=== PATIENT | male | born 1990 | race Caucasian/White ===

== ENCOUNTER 2017-10-22 21:30 | Emergency (ER) | payer MEDICAID ==
[2017-10-23 02:41] LABS: ABS Basophils 0.1 10^3/ul (0-0.2); ABS Eosinophils 0.1 10^3/ul (0-0.6); ABS Lymphocytes 3.5 10^3/ul (1.0-4.8); ABS Monocytes 0.8 10^3/ul (0-0.8); ABS Neutrophils 5.3 10^3/ul (1.5-7.7); ABS Nucleated RBC 0 10^3/ul; Hematocrit 48 % (42-52); Hemoglobin 16.1 g/dl (14.0-18.0); Lymphocyte % 35.7 % (25-47); Mean Corpuscular HGB Conc 34 g/dl (31-36); Mean Corpuscular Hemoglobin 30 pg (27-31); Mean Corpuscular Volume 87 fL (80-94); Mean Platelet Volume 7.5 um3 (7.4-10.4); Nucleated Red Blood Cells % 0.2; Platelet Count 313 10^3/ul (150-450); Red Blood Count 5.45 10^6/ul (4.00-5.40); Red Cell Distribution Width 13 % (10.5-15); White Blood Count 9.8 10^3/ul (3.5-10.8)
[2017-10-23 02:55] LABS: EGFR Non-African American 79.1 (>60)
--- NOTE | 2017-10-23 03:40 | ED ---
HPI Chest Pain - HPI Summary HPI Summary: Complains of left lower rib pain, left shoulder blade pain x several weeks. Pain is intermittent, with random onset and resolution. Denies active left side rib pain here in the ED. Also complains of cough 2 weeks. Eyes trauma, fever, sore throat, SOB, N/V/D, abdominal pain, change in urinary BM. No history of CP or SOB with exertion. Medical history is untreated hypertension years, anxiety, panic attacks.. Former smoker, quit 2 years ago. Denies illegal drug use. Occasional EtOH. Denies family cardiac history, recent trauma or surgery, unilateral leg pain, hemoptysis. - History of Current Complaint Chief Complaint: EDChestWallPain Time Seen by Provider: 10/23/17 01:39 Hx Obtained From: Patient Onset/Duration: Started Weeks Ago Timing: Intermittent, Lasting Minutes Initial Severity: Mild Pain Intensity: 0 Pain Scale Used: 0-10 Numeric Chest Pain Location: Discrete at:, Left Lateral Chest Pain Radiates To:: Shoulder Aggravating Factor(s): Nothing Alleviating Factor(s): Nothing Associated Signs and Symptoms: Positive: Chest Pain, Anxiety, Palpitations - Risk Factors Pulmonary Embolism Risk Factors: Negative - Allergy/Home Medications Allergies/Adverse Reactions: Allergies Allergy/AdvReac Type Severity Reaction Status Date / Time No Known Allergies Allergy Verified 08/21/13 19:33 PMH/Surg Hx/FS Hx/Imm Hx Endocrine/Hematology History: Denies: Hx Anticoagulant Therapy Cardiovascular History: Denies: Hx Cardiac Arrest Respiratory History: Denies: Hx Lung Cancer History: Denies: Hx Dialysis Opthamlomology History: Denies: Hx Cataracts EENT History: Denies: Hx Deafness Neurological History: Denies: Hx CVA Psychiatric History: Reports: Hx Panic Disorder Infectious Disease History: No Infectious Disease History: Denies: Traveled Outside the [place] in Last 30 Days - Social History Alcohol Use: Occasionally Alcohol Amount: patient report hx of heavy use Substance Use Type: Reports: None Smoking Status (MU): Former Smoker Type: Cigarettes Amount Used/How Often: 1/4 PPD Review of Systems Constitutional: Negative Eyes: Negative ENT: Negative Positive: Palpitations, Chest Pain Respiratory: Negative Gastrointestinal: Negative Genitourinary: Negative Positive: Other Skin: Negative Neurological: Negative Psychological: Normal All Other Systems Reviewed And Are Negative: Yes Physical Exam - Summary Physical Exam Summary: Patient tender to palpation in the left paraspinal muscles along T-spine. Tenderness to palpation of left lower lateral rib wall. No left lateral chest wall pain pain with deep inhalation, movement of left arm. No ecchymosis, deformity, swelling, erythema noted to left chest wall. Triage Information Reviewed: Yes Vital Signs On Initial Exam: Initial Vitals Temp Pulse Resp BP Pulse Ox 98.8 F 90 16 163/101 100 10/22/17 21:47 10/22/17 21:47 10/22/17 21:47 10/22/17 21:47 10/22/17 21:47 Vital Signs Reviewed: Yes Appearance: Positive: Well-Appearing Skin: Positive: Warm Head/Face: Positive: Normal Head/Face Inspection Eyes: Positive: Normal Neck: Positive: Supple Respiratory/Lung Sounds: Positive: Clear to Auscultation Cardiovascular: Positive: Normal Abdomen Description: Positive: Nontender Musculoskeletal: Positive: Normal Neurological: Positive: Normal Psychiatric: Positive: Normal AVPU Assessment: Alert - Jean Marie Coma Scale Best Eye Response: 4 - Spontaneous Best Motor Response: 6 - Obeys Commands Best Verbal Response: 5 - Oriented Coma Scale Total: 15 Diagnostics - Vital Signs Vital Signs Temp Pulse Resp BP Pulse Ox 10/22/17 23:41 98.5 F 66 14 153/79 100 10/22/17 21:47 98.8 F 90 16 163/101 100 - Laboratory Lab Results: Lab Results 10/23/17 10/23/17 10/23/17 Range/Units 02:15 02:15 02:15 WBC 9.8 (3.5-10.8) 10^3/ul RBC 5.45 H (4.00-5.40) 10^6/ul Hgb 16.1 (14.0-18.0) g/dl Hct 48 (42-52) % MCV 87 (80-94) fL MCH 30 (27-31) pg MCHC 34 (31-36) g/dl RDW 13 (10.5-15) % Plt Count 313 (150-450) 10^3/ul MPV 7.5 (7.4-10.4) um3 Neut % (Auto) 54.0 (38-83) % Lymph % (Auto) 35.7 (25-47) % [place] % (Auto) 8.5 H (0-7) % Eos % (Auto) 1.0 (0-6) % Baso % (Auto) 0.8 (0-2) % Absolute Neuts (auto) 5.3 (1.5-7.7) 10^3/ul Absolute Lymphs (auto) 3.5 (1.0-4.8) 10^3/ul Absolute Monos (auto) 0.8 (0-0.8) 10^3/ul Absolute Eos (auto) 0.1 (0-0.6) 10^3/ul Absolute Basos (auto) 0.1 (0-0.2) 10^3/ul Absolute Nucleated RBC 0 10^3/ul Nucleated RBC % 0.2 D-Dimer, Quantitative < 200 (Less Than 230) ng/mL Sodium 139 (135-145) mmol/L Potassium 3.5 (3.5-5.0) mmol/L Chloride 100 L (101-111) mmol/L Carbon Dioxide 26 (22-32) mmol/L Anion Gap 13 H (2-11) mmol/L BUN 14 (6-24) mg/dL Creatinine 1.13 (0.67-1.17) mg/dL Est GFR ( Amer) 95.7 (>60) Est GFR (Non-Af Amer) 79.1 (>60) BUN/Creatinine Ratio 12.4 (8-20) Glucose 92 (70-100) mg/dL Calcium 10.3 (8.6-10.3) mg/dL Total Bilirubin 0.90 (0.2-1.0) mg/dL AST 24 (13-39) U/L ALT 32 (7-52) U/L Alkaline Phosphatase 77 (34-104) U/L Troponin I 0.01 (<0.04) ng/mL C-Reactive Protein 2.16 (<8.01) mg/L Total Protein 8.1 (6.4-8.9) g/dL Albumin 5.2 (3.2-5.2) g/dL Globulin 2.9 (2-4) g/dL Albumin/Globulin Ratio 1.8 (1-3) Lipase < 10 L (11.0-82.0) U/L Result Diagrams: 10/23/17 02:15 10/23/17 02:15 Lab Statement: Any lab studies that have been ordered have been reviewed, and results considered in the medical decision making process. - Radiology cxr Xray Interpretation: No Acute Changes Radiology Interpretation Completed By: ED Physician - EKG 1 Cardiac Rate: NL EKG Rhythm: Sinus Rhythm ST Segment: Normal Ectopy: None Chest Pain Course/Dx - Course Course Of Treatment: Complains of left lower rib pain, left shoulder blade pain x several weeks. Pain is intermittent, with random onset and resolution. Denies active left side rib pain here in the ED. Also complains of cough 2 weeks. Eyes trauma, fever, sore throat, SOB, N/V/D, abdominal pain, change in urinary BM. No history of CP or SOB with exertion. Medical history is untreated hypertension years, anxiety, panic attacks.. Former smoker, quit 2 years ago. Denies illegal drug use. Occasional EtOH. Denies family cardiac history, recent trauma or surgery, unilateral leg pain, hemoptysis. Patient tender to palpation in the left paraspinal muscles along T-spine. Tenderness to palpation of left lower lateral rib wall. No left lateral chest wall pain pain with deep inhalation, movement of left arm. No ecchymosis, deformity, swelling, erythema noted to left chest wall. EKG, chest x-ray negative. Labs negative. Follow-up with primary care. - Diagnoses Provider Diagnoses: Rib pain, Shoulder pain, Muscle spasm Discharge - Sign-Out/Discharge Documenting (check all that apply): Discharge/Admit/Transfer - Discharge Plan Condition: Stable Disposition: HOME Prescriptions: Cyclobenzaprine TAB* [Flexeril 10 MG TAB*] 10 mg PO TID PRN 3 Days #10 tab PRN Reason: Pain Referrals: No Primary Care Phys,NOPCP [Primary Care Provider] - - Billing Disposition and Condition Condition: STABLE Disposition: Home
[2017-10-23 04:01] VITALS: BP 155/87
--- NOTE | 2017-10-23 08:42 | RAD ---
INDICATION: Chest pain COMPARISON: None TECHNIQUE: PA and lateral dual-energy views were obtained. FINDINGS: Bones/Soft Tissues: There are no acute bony findings. Cardiomediastinal: The cardiomediastinal silhouette is normal. Lungs: There are no infiltrates. Pleura: There are no pleural effusions. Other: None IMPRESSION: NO ACTIVE DISEASE.
== END 2017-10-23 04:07 | disposition home or self-care (01) ==
LOC: ED 21:30
DX: R07.81 Pleurodynia (principal); M25.512 Pain in left shoulder; R25.2 Cramp and spasm; R07.9 Chest pain, unspecified; R00.2 Palpitations; Z87.891 Personal history of nicotine dependence
CPT/HCPCS: 36415; 71046; 80053; 83690; 84484; 85025; 85379; 86140; 93005; 99283

== ENCOUNTER 2022-03-04 13:34 | Observation (INO) ==
[2022-03-04] MEDS ORDERED: Morphine 4 MG/ML VIAL (1 ml) IV ONE (13:39)
[2022-03-04] MEDS ORDERED: NS 0.9% 1000 ml BAG 1,000 ML IV ONE (13:39)
[2022-03-04] MEDS ORDERED: ceFAZolin 1 GM ADVAN 1 GM in NS 0.9% 50 ML 50 ML IVPB ONE (13:41)
[2022-03-04 13:52] LABS: ABS Basophils 0.1 10^3/ul (0-0.2); ABS Eosinophils 0.4 10^3/ul (0-0.6); ABS Lymphocytes 4.8 10^3/ul (1.0-4.8); ABS Neutrophils 5.2 10^3/ul (1.5-7.7); Eosinophil % 3.6 %; Hematocrit 43 % (42-52); Hemoglobin 14.4 g/dL (14.0-18.0); Lymphocyte % 41.4 %; Mean Corpuscular HGB Conc 33 g/dL (31-36); Mean Corpuscular Hemoglobin 28 pg (27-31); Mean Corpuscular Volume 86 fL (80-94); Mean Platelet Volume 7.3 fL (7.4-10.4); Nucleated Red Blood Cells % 0.1; Platelet Count 336 10^3/uL (150-450); Red Blood Count 5.06 10^6 /uL (4.18-5.48); Red Cell Distribution Width 13 % (10-15); White Blood Count 11.5 10^3/uL (3.5-10.8)
[2022-03-04 14:31] LABS: Albumin 4.9 g/dL (3.2-5.2); Albumin/Globulin Ratio 1.9 (1-3); Globulin 2.6 g/dL (2-4); Potassium 3.2 mmol/L (3.5-5.0); Total Bilirubin 0.7 mg/dL (0.2-1.0); Total Protein 7.5 g/dL (6.4-8.9); eGFR CKD-EPI 94.2 (>60)
[2022-03-04] MEDS ORDERED: ceFAZolin 2 GM PREMIX 2 GM/50 ML BAG ONE (21:41)
[2022-03-04] MEDS ORDERED: fentaNYL 250 mcg/5 ml 50 MCG/ML 5 ml VIAL (250 MCG) ONE (21:52)
[2022-03-04] MEDS ORDERED: Midazolam 2 mg/2 ml VIAL 1 mg/ml 2 ml VIAL (2 mg) ONE (21:52)
[2022-03-04] MEDS ORDERED: Dexamethasone IV 4 MG/ML VIAL 1 ml VIAL ONE (21:53)
[2022-03-04] MEDS ORDERED: Ondansetron 4 mg VIAL 2 MG/ML 2 ml VIAL ONE (21:53)
[2022-03-04] MEDS ORDERED: Propofol 10 MG/ML 20 ML BTL ONE (21:53)
[2022-03-04] MEDS ORDERED: Bupivacaine 0.5% SDV PF 30ML VIAL ONE (22:05)
[2022-03-04] MEDS ORDERED: Naloxone 0.4 mg VIAL 0.4 mg/ml 1 ml VIAL IV PRN (22:44)
[2022-03-04] MEDS ORDERED: fentaNYL 100 mcg/2 ml 50 MCG/ML VIAL IV PRN (22:44)
[2022-03-04] MEDS ORDERED: Acetaminophen IV 1 GM/100ML 1,000 MG/100 ML BAG IV PRN (22:44)
[2022-03-04] MEDS ORDERED: Ondansetron 4 mg VIAL 2 MG/ML 2 ml VIAL IV PRN (22:44)
[2022-03-05] MEDS ORDERED: Propofol 10 MG/ML 20 ML BTL ONE (00:06)
[2022-03-05] MEDS ORDERED: Magnesium Hydroxide LIQ 30 ML UDC PO PRN (00:24)
[2022-03-05] MEDS ORDERED: Ondansetron ODT 4 mg TAB 4 MG TAB PO PRN (00:24)
[2022-03-05] MEDS ORDERED: Ondansetron 4 mg VIAL 2 MG/ML 2 ml VIAL IV PRN (00:24)
[2022-03-05] MEDS ORDERED: Lactulose 30 ml UDC PO PRN (00:24)
[2022-03-05] MEDS ORDERED: Acetaminophen IV 1 GM/100ML 1,000 MG/100 ML BAG IV ONE (00:28)
[2022-03-05] MEDS ORDERED: HYDROmorphone 1 MG/1 ML SYRINGE ONE (00:38)
[2022-03-05] MEDS: HYDROmorphone 1 MG/1 ML SYRINGE IV PRN ×2 (00:40→01:09)
[2022-03-05] MEDS: ceFAZolin 1 GM ADVAN 1 GM in NS 0.9% 50 ML 50 ML IVPB SCH ×3 (06:22→21:59)
[2022-03-05] MEDS ORDERED: Vitamin THERAPEUTIC TAB PO SCH (09:00)
[2022-03-05] MEDS: Magnesium Hydroxide LIQ 30 ML UDC PO SCH ×2 (09:25→21:38)
[2022-03-05 10:41] LABS: Hematocrit 43 % (42-52); Hemoglobin 14.2 g/dL (14.0-18.0); Mean Platelet Volume 7.2 fL (7.4-10.4); Platelet Count 275 10^3/uL (150-450)
[2022-03-05 11:45] LABS: Blood Urea Nitrogen 13 mg/dL (6-24); CO2 Carbon Dioxide 24 mmol/L (22-32); Calcium 9.7 mg/dL (8.6-10.3); Chloride 104 mmol/L (101-111); Glucose 144 mg/dL (70-100); Sodium 138 mmol/L (135-145); eGFR CKD-EPI 115.5 (>60)
[2022-03-05 11:49] LABS: Anion Gap 10 mmol/L (2-11)
[2022-03-05 17:27] VITALS: BP 138/68
== END 2022-03-05 22:55 | disposition home or self-care (01) ==
LOC: ED 13:34 → OR 20:50 → SDS 20:50 → ED 20:50 → SSU 03-05 00:24 → INTOOBSV 03-05 00:24
PROVIDERS: ADMIT Orthopaedic Surgery; ATTEND Orthopaedic Surgery